=== PATIENT | male | born 2000 | race Caucasian/White ===

== ENCOUNTER → 2021-04-11 10:50 | Outpatient (BNVA) | payer OTHER, SELFPAY | PROVIDERS: Visit Provider Nurse Practitioner Family | DX: Z20.822 Contact with and (suspected) exposure to COVID-19 (principal); J06.9 Acute upper respiratory infection, unspecified | CPT/HCPCS: 87635 ==

== ENCOUNTER → 2023-10-23 13:39 | Outpatient (BNVA) | payer OTHER, SELFPAY | PROVIDERS: Visit Provider Nurse Practitioner | DX: R53.83 Other fatigue (principal); R61 Generalized hyperhidrosis | CPT/HCPCS: 80053; 83036; 84443; 85025 ==

== ENCOUNTER → 2023-11-06 16:53 | Outpatient (BNVA) | payer OTHER, SELFPAY | PROVIDERS: PCP Nurse Practitioner; Visit Provider Nurse Practitioner | DX: R53.83 Other fatigue (principal) | CPT/HCPCS: 85651; 86038; 86140; 86160; 86162; 86235; 86255; 86376 ==

== ENCOUNTER 2023-11-11 06:00 | Outpatient (CLI) | payer OTHER, SELFPAY ==
--- NOTE | 2023-11-11 06:30 | US_ITS ---
WS: [id number] Complete ABDOMINAL ULTRASOUND HISTORY: R11.2 - Nausea with vomiting, unspecified COMPARISON: None available. Liver: 14.4 cm in length. Normal size liver and echogenicity. No bile duct dilatation or mass. Portal Vein: Normal hepatopetal flow with monophasic waveform. Gallbladder: Normally distended gallbladder with no stones or wall thickening. CBD: 0.3 cm Pancreas: Normal size and echogenicity. Right kidney: 9.6 cm x 5.8 x 4.8 cm. Cortex:1.6 cm. Normal size and echogenicity. No hydronephrosis or mass. Left kidney: 10.5 cm x 5.2 cm x 4.6 cm. Cortex: 1.1 cm. Normal size and echogenicity. No hydronephrosis or mass. Spleen: 11.2 cm. Normal. Aorta and IVC: Unremarkable abdominal aorta and IVC. Impression: Normal complete abdomen ultrasound.
== END 2023-11-11 06:01 | disposition home or self-care (01) ==
LOC: RAD 06:01
PROVIDERS: PCP Nurse Practitioner; Visit Provider Nurse Practitioner
DX: R11.2 Nausea with vomiting, unspecified (principal); R10.9 Unspecified abdominal pain
CPT/HCPCS: 76700